=== PATIENT | female | born 1945 | race Caucasian/White ===

== ENCOUNTER 2024-04-13 06:02 | Day surgery (SDC) | payer MEDICARE, OTHER, SELFPAY ==
--- NOTE | 2024-03-30 15:52 | VNURNOTE ---
Called patient to explain [facility] services and SDS plans. No answer, left message.
--- NOTE | 2024-03-31 08:54 | VNURNOTE ---
[facility] Note
Patient is scheduled for an elective ..... on... they are a same day patient. Spoke with patient prior to surgery. Introduced the role of orthopedic navigator. Patient reports that he lives with his in a multistory home. There is a one step to
enter and a flight of steps to second floor. There is a powder room on the entry writer. He currently functions independently. He has a cane and a rolling walker.
Discussed orthopedic program and post surgical plans. Patient reviewed that he will have [facility]N services initially and will then start outpatient PT. Patient selects [facility] for his home care needs and will go to ....for outpatient PT.
--- NOTE | 2024-03-31 09:36 | VNURNOTE ---
previous note written in error.
Patient is scheduled for elective TKR on 04/13/24. She is a same day surgery patient. Spoke with patient prior to surgery. Introduced role of home health liaison. Patient reports that she [place] but is staying with her daughter Lashae in [place].
([address]). Daughter has a 2 story home with a powder room on first floor. Daughter has a large dog- patient made aware of pet policy. She currently functions independently. She has a rolling walker, commode, tub chair, wedge
pillow, cane.
PCP is Anjelica Pereira
Patient uses [facility] in [place], [place]
Discussed orthopedic program and post surgical plans. Reviewed that she will have [facility] services initially and then will go to outpatient therapy. She plans to go to [facility] for outpatient therapy. Patient is in agreement with the plan and states that
her daughter will be home to assist
[2024-04-13] VITALS (16 sets, daily range): BP systolic 101–147; BP diastolic 60–77; PULSE 80; O2SAT 96; BMI 28.9
[2024-04-13] MEDS: NORMOSOL-R/PLASMALYTE-A 1000 IV (06:47)
[2024-04-13] MEDS: TYLENOL 650 MG PO (06:47)
[2024-04-13] MEDS: MOBIC 15 MG PO (06:54)
[2024-04-13] MEDS: ANCEF 5 IV (11:26)
== END 2024-04-13 13:26 | disposition home or self-care (01) ==
LOC: SDS 06:02
PROVIDERS: ATTENDING PHYSICIAN Specialist
DX: M17.11 Unilateral primary osteoarthritis, right knee (principal)
CPT/HCPCS: 27447; 73560; 97116; 97162; C1713; C1776